=== PATIENT | female | born 1950 | race Caucasian/White ===

== ENCOUNTER → 2017-02-01 | Outpatient (CLI) | payer MEDICARE ==
--- NOTE | 2017-02-05 08:06 | MM ---
Reason for exam: screening (asymptomatic). Last mammogram was performed 1 year ago. History: Patient is postmenopausal. Physical Findings: A clinical breast exam by your physician is recommended on an annual basis and results should be correlated with mammographic findings. MG Screening Mammo w CAD Bilateral CC and MLO view(s) were taken. XCCL view(s) were taken of the left breast. Prior study comparison: January 31, 2016, bilateral MG 3d screening mammo w/cad. January 20, 2015, bilateral MG screening mammo w CAD. November 02, 2013, bilateral digital screening mammo w/CAD. The breast tissue is heterogeneously dense. This may lower the sensitivity of mammography. No significant changes when compared with prior studies. ASSESSMENT: Negative, BI-RAD 1 RECOMMENDATION: Routine screening mammogram of both breasts in 1 year.
== END | disposition home or self-care (01) ==
LOC: RADMAMWWP 07:12
PROVIDERS: ATTEND Internal Medicine
DX: Z12.31 Encounter for screening mammogram for malignant neoplasm of breast (principal)

== ENCOUNTER → 2017-02-28 | Outpatient (CLI) | payer MEDICARE ==
--- NOTE | 2017-02-28 10:04 | XR ---
EXAMINATION TYPE: XR abdomen 1V DATE OF EXAM: 02/28/2017 9:53 AM COMPARISON: 12/29/2015 HISTORY: Pain TECHNIQUE: One view abdominal series FINDINGS: The osseous structures are intact. The bowel gas pattern is nonspecific. Lung bases are clear. 2 mm calculus overlying the upper pole right kidney. Degenerative and hypertrophic change of the spine. IMPRESSION: 1. 2 mm right renal calculus suspected upper pole.
== END | disposition home or self-care (01) ==
LOC: RADXRMAIN 09:34
PROVIDERS: ATTEND Urology
DX: N20.0 Calculus of kidney (principal)
CPT/HCPCS: 74000

== ENCOUNTER → 2017-12-16 | Outpatient (CLI) | payer MEDICARE ==
[2017-12-16 09:39] LABS: ALT 20 U/L (9-52); AST 23 U/L (14-36); Albumin 4.6 g/dL (3.5-5.0); Alkaline Phosphatase 80 U/L (38-126); Anion Gap 11 mmol/L; Blood Urea Nitrogen 19 mg/dL (7-17); Calcium 9.9 mg/dL (8.4-10.2); Carbon Dioxide 32 mmol/L (22-30); Chloride 101 mmol/L (98-107); Cholesterol 215 mg/dL (<200); Glucose 91 mg/dL (74-99); HDL Cholesterol 68 mg/dL (40-60); LDL Cholesterol,Calculated 125 mg/dL (0-99); Potassium 4.7 mmol/L (3.5-5.1); Sodium 144 mmol/L (137-145); Total Bilirubin 0.4 mg/dL (0.2-1.3); Total Protein 7.5 g/dL (6.3-8.2); Triglycerides 112 mg/dL (<150)
[2017-12-16 17:10] LABS: Hemoglobin A1C 5.3 % (4.0-6.0)
== END | disposition home or self-care (01) ==
LOC: LABWHC1 08:43
PROVIDERS: ATTEND Internal Medicine
DX: N20.0 Calculus of kidney (principal); E78.5 Hyperlipidemia, unspecified; R73.9 Hyperglycemia, unspecified
CPT/HCPCS: 36415; 80053; 80061; 83036; 84443

== ENCOUNTER → 2018-03-25 | Outpatient (CLI) | payer MEDICARE ==
--- NOTE | 2018-03-26 09:55 | MM ---
Reason for exam: screening (asymptomatic). Last mammogram was performed 1 year and 2 months ago. History: Patient is postmenopausal. Physical Findings: A clinical breast exam by your physician is recommended on an annual basis and results should be correlated with mammographic findings. MG 3D Screening Mammo W/Cad Bilateral CC and MLO view(s) were taken. Prior study comparison: February 01, 2017, bilateral MG screening mammo w CAD. January 31, 2016, bilateral MG 3d screening mammo w/cad. The breast tissue is heterogeneously dense. This may lower the sensitivity of mammography. Focal asymmetry retroareolar right breast. ASSESSMENT: Incomplete: need additional imaging evaluation, BI-RAD 0 RECOMMENDATION: Special view mammogram of the right breast. If lesion persists on supplemental views, image directed ultrasound is recommended. [facility] will attempt to contact patient to return for supplemental views and ultrasound if indicated.
== END | disposition home or self-care (01) ==
LOC: RADMAMWWP 10:13
PROVIDERS: ATTEND Internal Medicine
DX: Z12.31 Encounter for screening mammogram for malignant neoplasm of breast (principal)
CPT/HCPCS: 77063; 77067

== ENCOUNTER → 2018-04-28 | Outpatient (CLI) | payer MEDICARE ==
--- NOTE | 2018-04-28 10:50 | MM ---
Reason for exam: additional evaluation requested from abnormal screening. Last mammogram was performed 1 month ago. History: Patient is postmenopausal. Physical Findings: Nurse did not find any significant physical abnormalities on exam. MG 3D Work Up W/Cad RT Spot compression CC, spot compression MLO, and LM view(s) were taken of the right breast. Prior study comparison: March 25, 2018, bilateral MG 3d screening mammo w/cad. February 01, 2017, bilateral MG screening mammo w CAD. The breast tissue is heterogeneously dense. This may lower the sensitivity of mammography. No suspicious abnormality. Previously seen focal asymmetry improved on additional views and appears as fibroglandular tissue. These results were verbally communicated with the patient and result sheet given to the patient on 04/28/18. ASSESSMENT: Benign, BI-RAD 2 RECOMMENDATION: Return to routine screening mammogram schedule for both breasts.
== END | disposition home or self-care (01) ==
LOC: RADMAMWWP 09:31
PROVIDERS: ATTEND Internal Medicine
DX: R92.8 Other abnormal and inconclusive findings on diagnostic imaging of breast (principal)
CPT/HCPCS: 77065; G0279; 77061

== ENCOUNTER → 2018-12-18 | Outpatient (CLI) | payer MEDICARE ==
--- NOTE | 2018-12-18 07:59 | BD ---
EXAMINATION TYPE: Axial Bone Density DATE OF EXAM: 12/18/2018 COMPARISON: NONE CLINICAL HISTORY: 68 YR OLD FEMALE....ICD-10 CODE: Z78.0 ASY. MENOPAUSAL STATE Height: 62.4 Weight: 118 FRAX RISK QUESTIONS: Secondary Osteoporosis: YES 3. Menopause before 45: YES RISK FACTORS HISTORY OF: History of Wrist Fracture: RT FOREARM A CHILD Active: YES Diet low in dairy products/other sources of calcium: YES A BIT Postmenopausal woman: AT 39 YRS OLD HORMONES IN THE PAST FOR 3 YRS MEDICATIONS: Additional Medications: BP MEDS, MULTIVITAMIN Additional History: NOTHING ADDITIONAL TO NOTE HERE EXAM MEASUREMENTS: Bone mineral densitometry was performed using the CONWEAVER System. Bone mineral density as measured about the Lumbar spine is: ----- L1-L4(G/cm2): 0.983 T Score Values are as follows: ----- L1: -1.0 ----- L2: -1.4 ----- L3: -2.0 ----- L4: -2.2 ----- L1-L4: -1.6 Bone mineral density FIRST BONE DENSITY AT [facility] Bone mineral density about the R hip (g/cm2): 0.741 Bone mineral density about the L hip (g/cm2): 0.754 T Score values are as follows: -----R Neck: -2.8 -----L Neck: -2.5 -----R Total: -2.1 -----L Total: -2.0 Bone mineral density FIRST BONE DENSITY AT [facility] FRAX%s: THERE IS A 15.3% CHANCE FOR A MAJOR OSTEOPOROTIC FX AND A 4.6% FOR HIP......PROBABILITY OF FX IN 10 YRS TIME IMPRESSION: Osteoporosis (T Score less than -2.5) femoral neck level in the right hip. There is increased fracture risk and therapy is usually indicated based on age. Re-Screen 1-2 years. NOTE: T-SCORE=SD OF THE YOUNG ADULT MEAN.
--- NOTE | 2018-12-18 16:26 | ECHOF ---
Referral Reason:I10 HYPERTENSION MEASUREMENTS -------- HEIGHT: 160.0 cm WEIGHT: 53.5 kg BP: RVIDd: 2.1 cm (< 3.3) IVSd: 0.9 cm (0.6 - 1.1) LVIDd: 3.4 cm (3.9 - 5.3) LVPWd: 0.9 cm (0.6 - 1.1) IVSs: 1.2 cm LVIDs: 1.5 cm LVPWs: 1.2 cm LAESV Index (A-L): 12.96 ml/m Ao Diam: 2.5 cm (2.0 - 3.7) AV Cusp: 1.4 cm (1.5 - 2.6) LA Diam: 2.6 cm (2.7 - 3.8) MV EXCURSION: 12.690 mm (> 18.000) MV EF SLOPE: 84 mm/s (70 - 150) EPSS: 0.8 cm MV E Stephen: 0.99 m/s MV DecT: 173 ms MV A Stephen: 0.71 m/s MV E/A Ratio: 1.40 RAP: 5.00 mmHg RVSP: 34.20 mmHg FINDINGS -------- Sinus rhythm. This was a technically good study. The left ventricular size is normal. Left ventricular wall thickness is normal. Overall left vent ricular systolic function is normal with, an EF between 55 - 60 %. The right ventricle is normal in size and function. Normal LA size by volume 22+/-6 ml/m2. The right atrium is normal in size. The aortic valve is trileaflet, and appears structurally normal. No aortic stenosis or regurgitation. Mild mitral regurgitation is present. Mild tricuspid regurgitation present. The right ventricular systolic pressure, as measured by Doppl er, is 34.20mmHg. Pulmonic valve appears structurally normal. The aortic root size is normal. Normal inferior vena cava with normal inspiratory collapse consistent with estimated right atrial pre ssure of 5 mmHg. The pericardium is normal. CONCLUSIONS -------- 1. Sinus rhythm. 2. This was a technically good study. 3. The left ventricular size is normal. 4. Left ventricular wall thickness is normal. 5. Overall left ventricular systolic function is normal with, an EF between 55 - 60 %. 6. The right ventricle is normal in size and function. 7. Normal LA size by volume 22+/-6 ml/m2. 8. The right atrium is normal in size. 9. The aortic valve is trileaflet, and appears structurally normal. No aortic stenosis or regurgitati on. 10. Mild mitral regurgitation is present. 11. Mild tricuspid regurgitation present. 12. The right ventricular systolic pressure, as measured by Doppler, is 34.20mmHg. 13. Pulmonic valve appears structurally normal. 14. The aortic root size is normal. 15. Normal inferior vena cava with normal inspiratory collapse consistent with estimated right atrial pressure of 5 mmHg. 16. The pericardium is normal. PROPERTY SUPERVISOR: Madyson Rodriguez RDCS
== END ==
LOC: RADBDWWP 07:10
PROVIDERS: ATTEND Family Medicine
DX: Z13.820 Encounter for screening for osteoporosis (principal); M81.0 Age-related osteoporosis without current pathological fracture; I08.1 Rheumatic disorders of both mitral and tricuspid valves; Z78.0 Asymptomatic menopausal state
CPT/HCPCS: 77080; 93306

== ENCOUNTER → 2019-04-29 | Outpatient (CLI) | payer MEDICARE ==
--- NOTE | 2019-04-30 13:05 | MM ---
Reason for exam: screening (asymptomatic). Last mammogram was performed 1 year ago. History: Patient is postmenopausal. Physical Findings: A clinical breast exam by your physician is recommended on an annual basis and results should be correlated with mammographic findings. MG Screening Mammo w CAD Bilateral CC and MLO view(s) were taken. Prior study comparison: April 28, 2018, right breast MG 3d work up w/cad RT. March 25, 2018, bilateral MG 3d screening mammo w/cad. The breast tissue is extremely dense which could obscure a lesion on mammography. Benign appearing bilateral calcifications. No suspicious abnormality. No significant changes when compared with prior studies. ASSESSMENT: Benign, BI-RAD 2 RECOMMENDATION: Routine screening mammogram of both breasts in 1 year.
== END | disposition home or self-care (01) ==
LOC: RADMAMWWP 06:45
PROVIDERS: ATTEND Family Medicine
DX: Z12.31 Encounter for screening mammogram for malignant neoplasm of breast (principal)
CPT/HCPCS: 77067

== ENCOUNTER → 2020-06-24 | Outpatient (CLI) | payer MEDICARE ==
--- NOTE | 2020-06-28 11:23 | MM ---
Reason for exam: screening (asymptomatic). Last mammogram was performed 1 year and 2 months ago. History: Patient is postmenopausal. Physical Findings: A clinical breast exam by your physician is recommended on an annual basis and results should be correlated with mammographic findings. MG 3D Screening Mammo W/Cad Bilateral CC and MLO view(s) were taken. Prior study comparison: April 29, 2019, bilateral MG screening mammo w CAD. April 28, 2018, right breast MG 3d work up w/cad RT. The breast tissue is heterogeneously dense. This may lower the sensitivity of mammography. There are benign appearing round vascular calcifications bilaterally. There is no discrete abnormality. ASSESSMENT: Benign, BI-RAD 2 RECOMMENDATION: Routine screening mammogram of both breasts in 1 year.
== END | disposition home or self-care (01) ==
LOC: RADMAMWWP 16:11
PROVIDERS: ATTEND Family Medicine
DX: Z12.31 Encounter for screening mammogram for malignant neoplasm of breast (principal)
CPT/HCPCS: 77063; 77067

== ENCOUNTER 2021-02-19 08:09 | Emergency (ER) | payer MEDICARE ==
[2021-02-19 08:17] VITALS: TEMP 97.9
[2021-02-19] MEDS ORDERED: ONDANSETRON 4 MG/2 ML VIAL IVP STA (08:38)
[2021-02-19] MEDS ORDERED: KETOROLAC 15 MG/ML 1 ML VIAL IVP STA (08:38)
[2021-02-19] MEDS ORDERED: SODIUM CHLORIDE 0.9% 1,000 ML IV STA (08:38)
--- NOTE | 2021-02-19 09:01 | ED ---
Female Urogenital HPI - General Chief complaint: Urogenital Stated complaint: kidney stones Time Seen by Provider: 02/19/21 08:18 Source: patient Mode of arrival: ambulatory Limitations: no limitations - History of Present Illness Initial comments: Patient is a 70-year-old female presenting to the emergency Department with complaints of some left flank pain that started yesterday. She states she noticed a little bit of discomfort earlier in the day and then has steadily progressed. She describes it as very sharp at times, does make her nauseous and she's had some vomiting episodes because of the pain. There is a little bit of radiation of the pain to the left side of the abdomen. She does have history of kidney stones and this does feel similar. She denies history of fever or chills. She continues to be nauseous, couple vomiting episodes morning. She did not take anything for pain. She has been fully vaccinated against Covid. She denies any hematuria, no dysuria. No anterior abdominal pain history of hysterectomy, no other abdominal surgeries. She denies any chest pain or short of breath. She has no further complaints. - Related Data Home Medications Medication Instructions Recorded Confirmed Atorvastatin [Lipitor] 10 mg PO HS 02/19/21 02/19/21 Olopatadine HCl [Pataday Once 1 drop BOTH EYES DAILY 02/19/21 02/19/21 Daily Relief] Ondansetron HCl [Zofran] 4 mg PO TID PRN 02/19/21 02/19/21 Propylene Glycol/Peg 400/Pf 1 drop BOTH EYES BID PRN 02/19/21 02/19/21 [Systane 0.3-0.4% Eye Drops] amLODIPine [Norvasc] 5 mg PO BID 02/19/21 02/19/21 Allergies Allergy/AdvReac Type Severity Reaction Status Date / Time Penicillins Allergy Dyspnea Verified 02/19/21 09:15 Review of Systems ROS Statement: Those systems with pertinent positive or pertinent negative responses have been documented in the HPI. ROS Other: All systems not noted in ROS Statement are negative. Past Medical History Additional Past Medical History / Comment(s): RT KIDNEY STONES. History of Any Multi-Drug Resistant Organisms: None Reported Past Surgical History: Appendectomy, Hysterectomy, Tonsillectomy Additional Past Surgical History / Comment(s): RIGHT PERCUTANEOUS NEPHROLITHOTOM Y Past Anesthesia/Blood Transfusion Reactions: No Reported Reaction Past Psychological History: No Psychological Hx Reported Smoking Status: Never smoker Past Alcohol Use History: None Reported Past Drug Use History: None Reported - Past Family History Mother Family Medical History: Deep Vein Thrombosis (DVT) Sister(s) Family Medical History: Cancer General Exam - General Exam Comments Initial Comments: GENERAL: Patient is well-developed and well-nourished. Patient is nontoxic and in Mild distress. HEAD: Atraumatic, normocephalic. EYES: Pupils equal round and reactive to light, extraocular movements intact, sclera anicteric, conjunctiva are normal. Eyelids were unremarkable. ENT: TMs normal, nares patent, oropharynx clear without exudates. Moist mucous membranes. NECK: Normal range of motion, supple without lymphadenopathy or JVD. LUNGS: Unlabored respirations. Breath sounds clear to auscultation bilaterally and equal. No wheezes rales or rhonchi. HEART: Regular rate and rhythm without murmurs, rubs or gallops. ABDOMEN: Soft, nontender, normoactive bowel sounds. No guarding, no rebound. No masses appreciated. Left flank pain on palpation. : Deferred MUSCULOSKELETAL: Normal extremities with adequate strength and normal range of motion, no pitting or edema. No clubbing or cyanosis. NEUROLOGICAL: Patient is alert and oriented x 3. Motor and sensory are also intact. Cranial nerves II through XII grossly intact. Symmetrical smile. Normal speech, normal gait. PSYCH: Normal mood, normal affect. SKIN: Warm, Dry, normal turgor, no rashes or lesions noted. Limitations: no limitations Course Vital Signs 02/19/21 02/19/21 08:12 09:43 Temperature 97.9 F Pulse Rate 109 H Respiratory 18 16 Rate Blood Pressure 130/75 145/70 O2 Sat by Pulse 98 97 Oximetry Medical Decision Making - Medical Decision Making Patient is a 70-year-old female here for left low back, flank pain for the last 2 days. She does have history of kidney stones and was fearful that this is another one. Her vital signs are stable, no fevers. Her labs are good, no white count, kidney function is stable. Urine shows no evidence of infection, no hematuria. Computed tomography scan shows no evidence of kidney stones, no acute process. Patient is given some fluids and Toradol as well as some Zofran, reports improvement in her symptoms. She states she is able to move around better without discomfort. I discussed these findings with the patient. This is most likely a muscle skeletal injury. I recommended continue anti- inflammatories at home such as ibuprofen. I will also send her home with a few tablets of Zofran for any additional nausea. She'll follow up with her PCP. Patient is stable for discharge. Patient is in agreement with this plan of care. Return parameters were discussed with the patient and they verbalized understanding. Case discussed with Dr. Herrera. - Lab Data Result diagrams: 02/19/21 09:01 02/19/21 09:01 Lab Results 02/19/21 02/19/21 02/19/21 Range/Units 09:01 09:01 09:01 WBC 5.5 (3.8-10.6) k/uL RBC 5.33 (3.80-5.40) m/uL Hgb 15.2 (11.4-16.0) gm/dL Hct 46.5 H (34.0-46.0) % MCV 87.2 (80.0-100.0) fL MCH 28.5 (25.0-35.0) pg MCHC 32.7 (31.0-37.0) g/dL RDW 13.4 (11.5-15.5) % Plt Count 233 (150-450) k/uL MPV 7.0 Neutrophils % 82 % Lymphocytes % 9 % Monocytes % 6 % Eosinophils % 0 % Basophils % 1 % Neutrophils # 4.5 (1.3-7.7) k/uL Lymphocytes # 0.5 L (1.0-4.8) k/uL Monocytes # 0.3 (0-1.0) k/uL Eosinophils # 0.0 (0-0.7) k/uL Basophils # 0.0 (0-0.2) k/uL Sodium 139 (137-145) mmol/L Potassium 4.2 (3.5-5.1) mmol/L Chloride 101 (98-107) mmol/L Carbon Dioxide 28 (22-30) mmol/L Anion Gap 10 mmol/L BUN 13 (7-17) mg/dL Creatinine 0.59 (0.52-1.04) mg/dL Est GFR (CKD-EPI)AfAm >90 (>60 ml/min/1.73 sqM) Est GFR (CKD-EPI)NonAf >90 (>60 ml/min/1.73 sqM) Glucose 118 H (74-99) mg/dL Plasma Lactic Acid Cm 1.0 (0.7-2.0) mmol/L Calcium 10.0 (8.4-10.2) mg/dL Total Bilirubin 0.5 (0.2-1.3) mg/dL AST 33 (14-36) U/L ALT 19 (4-34) U/L Alkaline Phosphatase 100 (38-126) U/L Total Protein 7.8 (6.3-8.2) g/dL Albumin 4.8 (3.5-5.0) g/dL Urine Color Urine Appearance (Clear) Urine pH (5.0-8.0) Ur Specific [place] (1.001-1.035) Urine Protein (Negative) Urine Glucose (UA) (Negative) Urine Ketones (Negative) Urine Blood (Negative) Urine Nitrite (Negative) Urine Bilirubin (Negative) Urine Urobilinogen (<2.0) mg/dL Ur Leukocyte Esterase (Negative) Urine RBC (0-5) /hpf Urine WBC (0-5) /hpf Ur Squamous Epith Cells (0-4) /hpf Urine Bacteria (None) /hpf Urine Mucus (None) /hpf 02/19/21 Range/Units 10:23 WBC (3.8-10.6) k/uL RBC (3.80-5.40) m/uL Hgb (11.4-16.0) gm/dL Hct (34.0-46.0) % MCV (80.0-100.0) fL MCH (25.0-35.0) pg MCHC (31.0-37.0) g/dL RDW (11.5-15.5) % Plt Count (150-450) k/uL MPV Neutrophils % % Lymphocytes % % Monocytes % % Eosinophils % % Basophils % % Neutrophils # (1.3-7.7) k/uL Lymphocytes # (1.0-4.8) k/uL Monocytes # (0-1.0) k/uL Eosinophils # (0-0.7) k/uL Basophils # (0-0.2) k/uL Sodium (137-145) mmol/L Potassium (3.5-5.1) mmol/L Chloride (98-107) mmol/L Carbon Dioxide (22-30) mmol/L Anion Gap mmol/L BUN (7-17) mg/dL Creatinine (0.52-1.04) mg/dL Est GFR (CKD-EPI)AfAm (>60 ml/min/1.73 sqM) Est GFR (CKD-EPI)NonAf (>60 ml/min/1.73 sqM) Glucose (74-99) mg/dL Plasma Lactic Acid Cm (0.7-2.0) mmol/L Calcium (8.4-10.2) mg/dL Total Bilirubin (0.2-1.3) mg/dL AST (14-36) U/L ALT (4-34) U/L Alkaline Phosphatase (38-126) U/L Total Protein (6.3-8.2) g/dL Albumin (3.5-5.0) g/dL Urine Color Colorless Urine Appearance Clear (Clear) Urine pH 7.0 (5.0-8.0) Ur Specific [place] 1.005 (1.001-1.035) Urine Protein Negative (Negative) Urine Glucose (UA) Negative (Negative) Urine Ketones 1+ H (Negative) Urine Blood Negative (Negative) Urine Nitrite Negative (Negative) Urine Bilirubin Negative (Negative) Urine Urobilinogen <2.0 (<2.0) mg/dL Ur Leukocyte Esterase Large H (Negative) Urine RBC 1 (0-5) /hpf Urine WBC 3 (0-5) /hpf Ur Squamous Epith Cells 1 (0-4) /hpf Urine Bacteria Rare H (None) /hpf Urine Mucus Rare H (None) /hpf Disposition Clinical Impression: Low back strain, Nausea & vomiting Disposition: HOME SELF-CARE Condition: Stable Instructions (If sedation given, give patient instructions): Muscle Strain (ED) Additional Instructions: Please return to the Emergency Department if symptoms worsen or any other concerns. I recommend taking anti-inflammatory such as ibuprofen or Aleve for the back pain. May also try heat to the area. Follow-up with your regular doctor Is patient prescribed a controlled substance at d/c from ED?: No Referrals: Tatum Brink MD [Primary Care Provider] - 1-2 days Time of Disposition: 10:48
[2021-02-19 09:10] LABS: HGB 15.2 gm/dL (11.4-16.0); RBC 5.33 m/uL (3.80-5.40); WBC 5.5 k/uL (3.8-10.6)
[2021-02-19 09:11] LABS: Basophils % (A) 1 %; Eosinophils % (A) 0 %; HCT 46.5 % (34.0-46.0); Lymphocytes # (A) 0.5 k/uL (1.0-4.8); Lymphocytes % (A) 9 %; MCH 28.5 pg (25.0-35.0); MCHC 32.7 g/dL (31.0-37.0); MCV 87.2 fL (80.0-100.0); Monocytes # (A) 0.3 k/uL (0-1.0); Monocytes % (A) 6 %; Neutrophils # (A) 4.5 k/uL (1.3-7.7); Neutrophils % (A) 82 %; Platelet Count 233 k/uL (150-450); RDW 13.4 % (11.5-15.5)
[2021-02-19 09:20] LABS: ALT 19 U/L (4-34); AST 33 U/L (14-36); African American GFR (CKD) >90 (>60 ml/min/1.73 sqM); Albumin 4.8 g/dL (3.5-5.0); Alkaline Phosphatase 100 U/L (38-126); Anion Gap 10 mmol/L; Blood Urea Nitrogen 13 mg/dL (7-17); Carbon Dioxide 28 mmol/L (22-30); Chloride 101 mmol/L (98-107); Glucose 118 mg/dL (74-99); Non-African American GFR(CKD) >90 (>60 ml/min/1.73 sqM); Potassium 4.2 mmol/L (3.5-5.1); Sodium 139 mmol/L (137-145); Total Bilirubin 0.5 mg/dL (0.2-1.3); Total Protein 7.8 g/dL (6.3-8.2)
--- NOTE | 2021-02-19 10:07 | CT ---
EXAMINATION TYPE: CT abdomen pelvis wo con DATE OF EXAM: 02/19/2021 COMPARISON: 02/10/2015 HISTORY: Lt Flank pain CT DLP: 299.1 mGycm Automated exposure control for dose reduction was used. TECHNIQUE: Helical acquisition of images was performed from the lung bases through the pelvis. FINDINGS: LUNG BASES: No significant abnormality is appreciated. LIVER/GB: No significant abnormality is appreciated. PANCREAS: No significant abnormality is seen. SPLEEN: No significant abnormality is seen. ADRENALS: No significant abnormality is seen. KIDNEYS: No significant abnormality is seen. ADENOPATHY: None visualized. OSSEOUS STRUCTURES: Degenerative disc disease L4-L5 BOWEL: Diverticulosis of the colon. Appendix not seen. No inflammatory changes in the right lower qu adrant. Bowel gas pattern nonspecific with no obstruction. OTHER: Aorta of normal caliber. Atherosclerotic change noted. IMPRESSION: DIVERTICULOSIS WITH NO CT EVIDENCE OF DIVERTICULITIS.
[2021-02-19 10:37] LABS: Appearance,Urine Clear (Clear); Bacteria,Urine Rare /hpf; Bilirubin,Urine Negative (Negative); Blood,Urine Negative (Negative); Color,Urine Colorless; Glucose,Urine (UA) Negative (Negative); Ketones,Urine 1+ (Negative); Leukocyte Esterase,Urine Large (Negative); Mucus,Urine Rare /hpf; Nitrite,Urine Negative (Negative); Protein,Urine Negative (Negative); RBC,Urine 1 /hpf (0-5); Specific Gravity,Urine 1.005 (1.001-1.035); Squamous Epithelial Cell,Urine 1 /hpf (0-4); Urobilinogen,Urine <2.0 mg/dL (<2.0); WBC,Urine 3 /hpf (0-5)
[2021-02-19] MEDS ORDERED: ONDANSETRON 4 MG ODT STARTER PACK 2 TAB BTL PO STA (10:45)
[2021-02-19 11:06] VITALS: BP 132/59; PULSE 78; RESP 18
== END 2021-02-19 11:08 | disposition home or self-care (01) ==
LOC: EC 08:09
DX: S39.012A Strain of muscle, fascia and tendon of lower back, initial encounter (principal); R11.2 Nausea with vomiting, unspecified; X58.XXXA Exposure to other specified factors, initial encounter; Z87.442 Personal history of urinary calculi; Z90.49 Acquired absence of other specified parts of digestive tract; Z90.710 Acquired absence of both cervix and uterus; Z90.09 Acquired absence of other part of head and neck
CPT/HCPCS: 36415; 80053; 83605; 85025; 81001; 74176; 99284; 96374; 96375; 96361; J2405; J1885; S0119

== ENCOUNTER → 2021-04-19 | Outpatient (CLI) | payer MEDICARE ==
--- NOTE | 2021-04-19 11:58 | US ---
EXAMINATION TYPE: US carotid duplex BILAT DATE OF EXAM: 04/19/2021 COMPARISON: NONE CLINICAL HISTORY: R09.89 Other specified symptoms and signs involving. EXAM MEASUREMENTS: RIGHT: Peak Systolic Velocity (PSV) cm/sec ----- Right CCA: 105.5 ----- Right ICA: 111.5 ----- Right ECA: 141.3 ICA/CCA ratio: 1.1 RIGHT: End Diastole cm/sec ----- Right CCA: 22.7 ----- Right ICA: 31.5 ----- Right ECA: 12.3 LEFT: Peak Systolic Velocity (PSV) cm/sec ----- Left CCA: 30.5 ----- Left ICA: 401.0 ----- Left ECA: 30.8 ICA/CCA ratio: 13.2 LEFT: End Diastole cm/sec ----- Left CCA: 10.6 ----- Left ICA: 73.4 ----- Left ECA: 0.0 VERTEBRALS (direction of flow): Right Vertebral: Antegrade Left Vertebral: Antegrade Rhythm: Normal Right: moderate atherosclerotic plaque without significant velocity increases Left: Severe atherosclerotic plaque, with significant velocity increases suspicious for greater than 70% stenosis. IMPRESSION: 1. Right: No evidence of hemodynamically significant stenosis of the right internal carotid artery. T here is moderate atherosclerotic plaque at the right common carotid artery bifurcation. 2. Left: The peak systolic velocity left internal carotid artery measures 401. There is severe greate r than 70% stenosis to near occlusion of the left internal carotid artery. Severe atherosclerotic moni que of the left common carotid artery bifurcation and internal carotid artery.. Vascular surgery cons ultation is recommended. Criteria for Assigning % of Stenosis / Diameter reduction (Estimation based on the indirect measurements of the internal carotid artery velocities (ICA PSV). 1. Normal (no stenosis)=ICA PSV < 125 cm/s: ratio < 2.0: ICA EDV<40 cm/s. 2. Less than 50% stenosis=ICA PSV < 125 cm/s: ratio < 2.0: ICA EDV<40 cm/s. 3. 50 to 69% stenosis=ICA PSV of 125 to 230 cm/s: ration 2.0 ? 4.0: ICA EDV 40-100 cm/s. 4. Greater than 70% stenosis to near occlusion= ICA PSV > 230 cm/s: ratio > 4.0: ICA EDV > 100 cm/s. 5. Near occlusion= ICA PSV velocities may be low or undetectable: variable ratio and ICA EDV. 6. Total occlusion=unable to detect flow.
== END | disposition home or self-care (01) ==
LOC: RADUSWWP 11:00
PROVIDERS: ATTEND Family Medicine
DX: I65.22 Occlusion and stenosis of left carotid artery (principal)
CPT/HCPCS: 93880

== ENCOUNTER → 2021-05-23 | Outpatient (CLI) | payer MEDICARE ==
[2021-05-23 15:30] LABS: African American GFR (CKD) >90 (>60 ml/min/1.73 sqM); Blood Urea Nitrogen 25 mg/dL (7-17); Non-African American GFR(CKD) 89 (>60 ml/min/1.73 sqM)
--- NOTE | 2021-05-24 08:37 | CT ---
EXAMINATION TYPE: CT angio neck DATE OF EXAM: 05/23/2021 COMPARISON: Carotid ultrasound 04/19/2021 HISTORY: 70-year-old female I65.29, unspecified occlusion TECHNIQUE: Contiguous axial scanning of the neck performed without and with IV Contrast, patient inje cted with 65 mL of Isovue 370. Coronal/sagittal MIP reconstructions performed. 3-D reconstructions ge nerated on a dedicated independent workstation. CT DLP: 472.4 mGycm Automated exposure control for dose reduction was used. FINDINGS: Mild atherosclerotic arch calcifications. There is a dominant right vertebral artery. The left verteb ral artery shows its takeoff very close to the origin of the left subclavian artery. Because further diminutive/hypoplastic along the V4 segment. Large bilateral posterior communicating arteries are not ed, right greater than left within the intracranial space. The right common carotid artery is patent. There is mild atherosclerotic plaque and calcification at the right carotid bifurcation with mild, less than 25% narrowing. No significant stenosis of the righ t internal carotid artery. Moderate to severe atherosclerotic plaque and calcification at the left carotid bifurcation extending into the proximal left ICA resulting in a severe 70% stenosis by NASCET criteria. Additional severe focal atherosclerotic stenosis at the origin of the left external carotid artery. 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 Nodularity of the thyroid gland raul suring up to 7 mm, possible goiter. IMPRESSION: 1. EXTENSIVE ATHEROSCLEROTIC PLAQUE AND CALCIFICATION OF THE LEFT CAROTID BIFURCATION RESULTING IN A SEVERE, 70% PROXIMAL LEFT ICA STENOSIS. SEVERE FOCAL STENOSIS AT THE ORIGIN OF THE LEFT EXTERNAL BENDER TID ARTERY WELL. 2. MILD, LESS THAN 25% STENOSIS PROXIMAL RIGHT ICA. 3. DOMINANT RIGHT VERTEBRAL ARTERY. THE DIMINUTIVE LEFT VERTEBRAL ARTERY HAS ITS ORIGIN VERY CLOSE TO THE TAKEOFF OF THE LEFT SUBCLAVIAN ARTERY AND BECOMES FURTHER HYPOPLASTIC AT THE V4 SEGMENT.
== END | disposition home or self-care (01) ==
LOC: RADCTMAIN 14:38
PROVIDERS: ATTEND Internal Medicine Interventional Cardiology
DX: I65.22 Occlusion and stenosis of left carotid artery (principal)
CPT/HCPCS: 82565; 84520; 70498; 36415; Q9967

== ENCOUNTER → 2021-09-06 | Outpatient (CLI) | payer MEDICARE ==
[2021-09-06 17:59] LABS: Chol/HDL Ratio 1.89 Ratio; VLDL Calculation 10.08 mg/dL (5.00-40.00)
== END | disposition home or self-care (01) ==
LOC: LABWHC1 10:04
PROVIDERS: ATTEND Nurse Practitioner Adult Health
DX: E78.5 Hyperlipidemia, unspecified (principal)
CPT/HCPCS: 36415; 80061

== ENCOUNTER 2021-11-17 20:01 | Emergency (ER) | payer MEDICARE ==
[2021-11-17 20:09] VITALS: BP 126/64; PULSE 108; RESP 20; TEMP 98.9
[2021-11-17] MEDS ORDERED: FLUORESCEIN STRIPS 1 MG STRIP LEFT EYE ONE (20:43)
[2021-11-17] MEDS ORDERED: PROPARACAINE 0.5% OPHTH DROPS 15 ML BTL BOTH EYES STA (20:44)
[2021-11-17] MEDS ORDERED: valACYclovir HCL 1,000 MG TABLET PO STA (20:45)
[2021-11-17] MEDS ORDERED: HYDROcodone/APAP 5-325MG 1 EACH TAB PO STA (20:45)
--- NOTE | 2021-11-17 21:34 | ED ---
Skin/Abscess/FB HPI - General Chief complaint: Skin/Abscess/Foreign Body Stated complaint: shingles Time Seen by Provider: 11/17/21 20:10 Source: patient, RN notes reviewed Mode of arrival: ambulatory Limitations: no limitations - History of Present Illness Initial comments: This is a pleasant 71-year-old female who presents with a rash to the left facial area, left forehead, and around her left eye which started about 48 hours ago. Patient states she is getting burning and tingling to the area. No loss of visual acuity. No significant eye discharge. Patient denies skin rash elsewhere. No history of immunosuppression. No headache, no fever or chills, no changes in vision or hearing, no sore throat or difficulty with speech, no neck pain, no chest pain or shortness of breath, no abdominal pain, no nausea or vomiting, no changes in urination or bowel movements, no numbness or tingling, no extremity pain, no skin rashes or lesions. MD complaint: rash - Related Data Home Medications Medication Instructions Recorded Confirmed amLODIPine [Norvasc] 5 mg PO BID 02/19/21 11/17/21 Aspirin EC [Ecotrin Low Dose] 81 mg PO HS 11/17/21 11/17/21 Rosuvastatin Calcium [Crestor] 40 mg PO W/SUPPER 11/17/21 11/17/21 Previous Rx's Medication Instructions Recorded Artificial Tears Ointment 1 gm OPHTHALMIC QID #3.5 gm 11/17/21 [Lubrifresh Pm Ointment] Docusate [Colace] 100 mg PO DAILY #30 capsule 11/17/21 HYDROcodone/APAP 5-325MG [Atwood 1 each PO Q6H PRN #12 tab 11/17/21 5-325] valACYclovir HCL [Valtrex] 1,000 mg PO Q8HR #21 tab 11/17/21 Allergies Allergy/AdvReac Type Severity Reaction Status Date / Time Penicillins Allergy Dyspnea Verified 11/17/21 20:56 Review of Systems ROS Statement: Those systems with pertinent positive or pertinent negative responses have been documented in the HPI. ROS Other: All systems not noted in ROS Statement are negative. Past Medical History Past Medical History: Hyperlipidemia, Hypertension Additional Past Medical History / Comment(s): RT KIDNEY STONES. History of Any Multi-Drug Resistant Organisms: None Reported Past Surgical History: Appendectomy, Hysterectomy, Tonsillectomy Additional Past Surgical History / Comment(s): RIGHT PERCUTANEOUS NEPHROLITHOTOMY Past Anesthesia/Blood Transfusion Reactions: No Reported Reaction Past Psychological History: No Psychological Hx Reported Smoking Status: Never smoker Past Alcohol Use History: None Reported Past Drug Use History: None Reported - Past Family History Mother Family Medical History: Deep Vein Thrombosis (DVT) Sister(s) Family Medical History: Cancer General Exam - General Exam Comments Initial Comments: Patient no significant distress. Does not appear to be ill or toxic. Limitations: no limitations General appearance: alert, in no apparent distress Head exam: Present: atraumatic, normocephalic, normal inspection Eye exam: Present: normal appearance, PERRL, EOMI, other (Eye was stained, there was no significant uptake over the cornea. Anterior chamber clear on slit-lamp examination. No foreign body). Absent: scleral icterus, conjunctival injection, periorbital swelling ENT exam: Present: normal exam, mucous membranes moist Neck exam: Present: normal inspection. Absent: tenderness, meningismus, lymphadenopathy Respiratory exam: Present: normal lung sounds bilaterally. Absent: respiratory distress, wheezes, rales, rhonchi, stridor Cardiovascular Exam: Present: regular rate, normal rhythm, normal heart sounds. Absent: systolic murmur, diastolic murmur, rubs, gallop, clicks GI/Abdominal exam: Present: soft, normal bowel sounds. Absent: distended, tenderness, guarding, rebound, rigid Extremities exam: Present: normal inspection, full ROM, normal capillary refill. Absent: tenderness, pedal edema, joint swelling, calf tenderness Back exam: Present: normal inspection Neurological exam: Present: alert, oriented X3, CN II-XII intact Psychiatric exam: Present: normal affect, normal mood Skin exam: Present: warm, dry, intact, rash, vesicles, other (Patient has lesions about the left eye. Minimal conjunctival injection noted. Lesions extend onto the left forehead. Did not cross midline. Consistent with herpes zoster). Absent: normal color Course Vital Signs 11/17/21 20:07 Temperature 98.9 F Pulse Rate 108 H Respiratory 20 Rate Blood Pressure 126/64 O2 Sat by Pulse 97 Oximetry Medical Decision Making - Medical Decision Making Patient presents symptomology cancer with herpes zoster ophthalmicus involving the left eye. Discussed the case in detail with the on-call district administrative assistant. Patient can be seen on Saturday. He wanted her to continue the valacyclovir. Mark Anthony brunner is given a short course of Atwood. He did state that the patient is not improved by tomorrow she should return to the ER tomorrow for reevaluation. He also suggested artificial tears. Patient vision acuity was normal. She had no diminishment as assessed by me. Treatment plan discussed with the patient. She voices understanding. The case was discussed in detail with ED attending physician. Presentation, findings, treatment plan discussed in detail. Patient was told to return to the ER for any signs or symptoms worsen. Told to return immediately if any other problems arise. All questions answered. Treatment plan discussed. Patient in agreement Disposition Clinical Impression: Herpes zoster ophthalmicus of left eye Disposition: HOME SELF-CARE Condition: Good Instructions (If sedation given, give patient instructions): Shingles (ED) Additional Instructions: Taking antiviral medicine as directed. Take a stool softener while you're on the pain medication. Follow-up with ophthalmology on Saturday as directed. Follow-up with your regular physician as directed. Return to the ER immediately if any symptoms worsen, new symptoms arise, or any other problems develop. I spoke to the district administrative assistant here. Use artificial tears 4 times a day to the affected eye. Take the occasions as directed. They can see you in the office on Saturday. Call Saturday for an appointment on Saturday. Make sure you tell the military police officer that I spoke to Dr. Orellana. If her eye is not improved by tomorrow afternoon return here to the ER for reevaluation. Prescriptions: Docusate [Colace] 100 mg PO DAILY #30 capsule Artificial Tears Ointment [Lubrifresh Pm Ointment] 1 gm OPHTHALMIC QID #3.5 gm HYDROcodone/APAP 5-325MG [Atwood 5-325] 1 each PO Q6H PRN #12 tab PRN Reason: Pain valACYclovir HCL [Valtrex] 1,000 mg PO Q8HR #21 tab Is patient prescribed a controlled substance at d/c from ED?: No Referrals: Garrett Morillo MD [STAFF PHYSICIAN] - 11/21/21 Time of Disposition: 21:31
== END 2021-11-17 22:43 | disposition home or self-care (01) ==
LOC: EC 20:01
DX: B02.30 Zoster ocular disease, unspecified (principal); E78.5 Hyperlipidemia, unspecified; I10 Essential (primary) hypertension; Z79.82 Long term (current) use of aspirin; Z88.0 Allergy status to penicillin; Z87.442 Personal history of urinary calculi; Z90.49 Acquired absence of other specified parts of digestive tract; Z90.710 Acquired absence of both cervix and uterus
CPT/HCPCS: 99282

== ENCOUNTER → 2021-12-27 | Outpatient (CLI) | payer MEDICARE ==
--- NOTE | 2021-12-27 11:07 | BD ---
EXAMINATION TYPE: Axial Bone Density DATE OF EXAM: 12/27/2021 COMPARISON: NONE CLINICAL HISTORY: Height: 5 FT 3 1/2 IN Weight: 118 FRAX RISK QUESTIONS: Alcohol (3 or more units per day): NO Family History (Parent hip fracture): NO Glucocorticoids (More than 3mos): NO (Ex: prednisone, prednisolone, methylprednisolone, dexamethasone, and hydrocortisone). History of Fracture in Adulthood: NO Secondary Osteoporosis: 1. Type 1 Diabetes: NO 2. Hyperthyroidism: NO 3. Menopause before 45: YES 4. Malnutrition: NO 5. Chronic liver disease: NO Rheumatoid Arthritis: NO Current Tobacco Use: NO RISK FACTORS HISTORY OF: Surgery to Spine/Hip(right/left)/Wrist (right/left): NO Family History of Osteoporosis: NO Active: YES Diet low in dairy products/other sources of calcium: NO Postmenopausal woman: YES Take estrogen and/or progesterone medications: TOOK HRT AFTER HYST APPROX 5-6 YEARS Lost more than 2 inches in height since high school: NO Frequent falls: NO Poor Health: GOOD Hyperparathyroidism: NO Adrenal Insufficiency: NO MEDICATIONS: Additional Medications: ROSUVASTATAN, AMLODIPINE, EYE DROPS FOR SHINGLES Additional History: EXAM MEASUREMENTS: Bone mineral densitometry was performed using the [employer] System. Bone mineral density as measured about the Lumbar spine is: ----- L1-L4(G/cm2): 0.941 T Score Values are as follows: ----- L2: -2.0 ----- L3: -2.1 ----- L4: -2.3 ----- L1-L4: -2.0 Bone mineral density has: DECREASED -3.5 % since study of: 2018 Bone mineral density about the R hip (g/cm2): 0.593 Bone mineral density about the L hip (g/cm2): 0.649 T Score values are as follows: -----R Neck: -3.2 -----L Neck: -2.8 -----R Total: -2.6 -----L Total: -2.4 Bone mineral density has: DECREASED -7.8 % since study of: 2019 IMPRESSION: Osteoporosis of the right proximal femur and osteopenia of the lumbar spine and proximal left femur. NOTE: T-SCORE=SD OF THE YOUNG ADULT MEAN.
--- NOTE | 2021-12-27 13:55 | MM ---
Reason for exam: screening (asymptomatic). Last mammogram was performed 1 year and 6 months ago. History: Patient is postmenopausal. Physical Findings: A clinical breast exam by your physician is recommended on an annual basis and results should be correlated with mammographic findings. MG Screening Mammo w CAD Bilateral CC, MLO, and XCCL view(s) were taken. Prior study comparison: June 24, 2020, bilateral MG 3d screening mammo w/cad. April 29, 2019, bilateral MG screening mammo w CAD. The breast tissue is heterogeneously dense. This may lower the sensitivity of mammography. There is no discrete abnormality. No significant changes when compared with prior studies. ASSESSMENT: Negative, BI-RAD 1 RECOMMENDATION: Routine screening mammogram of both breasts in 1 year.
== END | disposition home or self-care (01) ==
LOC: RADMAMWWP 07:21
PROVIDERS: ATTEND Nurse Practitioner Adult Health
DX: Z12.31 Encounter for screening mammogram for malignant neoplasm of breast (principal); M81.0 Age-related osteoporosis without current pathological fracture; Z78.0 Asymptomatic menopausal state
CPT/HCPCS: 77067; 77080

== ENCOUNTER → 2023-08-07 | Outpatient (CLI) | payer MEDICARE ==
[2023-08-07 10:27] LABS: African American GFR (CKD) >90 (>60 ml/min/1.73 sqM); Blood Urea Nitrogen 18 mg/dL (7-17); Non-African American GFR(CKD) >90 (>60 ml/min/1.73 sqM)
--- NOTE | 2023-08-07 13:40 | CT ---
EXAMINATION TYPE: CT angio neck DATE OF EXAM: 08/07/2023 COMPARISON: 05/23/2021 HISTORY: 73-year-old female carotid bruit, R09.89 OTH SYMPTOMS AND SIGNS INVOLVING THE CIRC A TECHNIQUE: Contiguous axial scanning of the neck performed with IV Contrast, patient injected with 65mL mL of Isovue 370. Coronal/sagittal MIP reconstructions performed. 3-D reconstructions generated on a dedicated independent workstation. CT DLP: 167.00 mGycm Automated exposure control for dose reduction was used. FINDINGS: Biapical pleural-parenchymal scarring. Mild atherosclerotic change at the aortic arch. There is aberrant direct takeoff of the left vertebra l artery either very low from the left subclavian artery origin directly from the aortic arch. The ri ght vertebral artery is dominant. Both vertebral arteries are otherwise patent throughout the course. The V4 segment left vertebral artery becomes even more hypoplastic. There are prominent contribution s from the bilateral posterior cerebral arteries. Mild atherosclerotic calcifications within the carotid siphons. Scattered small hypodense nodules within the thyroid gland measuring up to 7 mm. Some soft tissue partially effacing the right vallecular space, likely lingual tonsillar hypertrophy, unchanged from 2020. The right common carotid artery is patent. Mild to moderate atherosclerotic calcifications in the right carotid bulb with mild, 20% proximal ICA narrowing by NASCET criteria. The left common carotid artery is patent. More moderate to severe atherosclerotic change at the left carotid bifurcation with severe, 70% proxi mal left ICA stenosis by NASCET criteria. Very severe stenosis proximal left ECA. IMPRESSION: 1. PROMINENT ATHEROSCLEROTIC CHANGE REDEMONSTRATED LEFT CAROTID BIFURCATION WITH SIMILAR, SEVERE, 70% PROXIMAL LEFT ICA STENOSIS. VERY SEVERE STENOSIS PROXIMAL LEFT ECA ALSO UNCHANGED. 2. MILD, UNDER 20% PROXIMAL RIGHT ICA STENOSIS, PROGRESSED FROM 2020. 3. DOMINANT RIGHT VERTEBRAL ARTERY. 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
== END | disposition home or self-care (01) ==
LOC: RADCTMAIN 09:36
PROVIDERS: ATTEND Internal Medicine Interventional Cardiology
DX: I70.203 Unspecified atherosclerosis of native arteries of extremities, bilateral legs (principal); R09.89 Other specified symptoms and signs involving the circulatory and respiratory systems
CPT/HCPCS: 82565; 84520; 70498; 36415; Q9967

== ENCOUNTER → 2023-11-11 | Outpatient (CLI) | payer MEDICARE ==
--- NOTE | 2023-11-11 17:54 | US ---
EXAMINATION TYPE: US bladder DATE OF EXAM: 11/11/2023 COMPARISON: NONE CLINICAL INDICATION: Female, 73 years old with history of R33.9 RETENTION OF URINE, UNSPECIFIED; TECHNIQUE: Multiple sonographic images of the bladder are obtained. FINDINGS: No gross abnormality of the partially distended bladder. Post Void Residual Volume: 6.7 mL Color Doppler performed to assess ureteral jets. Bilateral Jets seen: right jet not seen, left jet seen Normal Post Void Residual (less than 50ml): yes IMPRESSION: Small amount of post void residual bladder volume of 7 mL falls within acceptable limits. No sonograp hic evidence for urinary retention.
== END | disposition home or self-care (01) ==
LOC: RADUSWWP 13:25
PROVIDERS: ATTEND Family Medicine
DX: R33.9 Retention of urine, unspecified (principal)
CPT/HCPCS: 76857

== ENCOUNTER → 2024-01-23 | Outpatient (CLI) | payer MEDICARE ==
--- NOTE | 2024-01-23 13:20 | MM ---
Reason for Exam: Screening (asymptomatic). Last mammogram was performed 2 year(s) and 1 month(s) ago. Patient History: Menarche at age 11. First Full-Term at age 22. Left ovary removed at age 39. Right ovary removed at age 39. Hysterectomy at age 39. Postmenopausal. Estrogen for 1 year from age 39 until age 40. Risk Values: Meliza 5 year model risk: 1.6%. NCI Lifetime model risk: 3.7%. Prior Study Comparison: 04/29/2019 Bilateral Screening Mammogram, [facility]. 06/24/2020 Bilateral Screening Mammogram, [facility]. 12/27/2021 Bilateral Screening Mammogram, [facility]. Tissue Density: The breasts are heterogeneously dense, which may obscure small masses. Findings: Analyzed By CAD. There is no suspicious group of microcalcifications or new suspicious mass in either breast. Overall Assessment: Benign, BI-RAD 2 Management: Screening Mammogram of both breasts in 1 year. . Patient should continue monthly self-breast exams. A clinical breast exam by your physician is recommended on an annual basis. This exam should not preclude additional follow-up of suspicious palpable abnormalities. Note on Meliza scores and lifetime risk: 1. A Meliza score greater than 3% is considered moderate risk. If this is the case, consider specialist referral to assess eligibility for a risk reducing agent. 2. If overall lifetime risk for the development of breast cancer is 20% or higher, the patient may qualify for future screening with alternating mammogram and breast MRI. Electronically signed and approved by: Aquiles Landa M.D. Radiologis
== END | disposition home or self-care (01) ==
LOC: RADMAMWWP 08:00
PROVIDERS: ATTEND Family Medicine
DX: Z12.31 Encounter for screening mammogram for malignant neoplasm of breast (principal); Z78.0 Asymptomatic menopausal state
CPT/HCPCS: 77067

== ENCOUNTER → 2024-10-28 | Outpatient (CLI) | payer MEDICARE ==
[2024-10-28 11:17] LABS: African American GFR (CKD) >90 (>60 ml/min/1.73 sqM); Blood Urea Nitrogen 20 mg/dL (7-17); Non-African American GFR(CKD) 86 (>60 ml/min/1.73 sqM)
--- NOTE | 2024-10-28 16:01 | CT ---
EXAMINATION TYPE: CT angio neck DATE OF EXAM: 10/28/2024 COMPARISON: Prior CTA neck August 07, 2023 and older study 2020 CLINICAL INDICATION: Female, 74 years old with history of I65.139 OCCLUSION AND STENOSIS; PHH, caroti d stenosis TECHNIQUE: CTA scan of the head and neck is performed with IV Contrast, patient injected with 75ml m L of Isovue 370, axial images are obtained, coronal and sagittal reformatted images are reviewed. 3D reconstructed images are created on an independent workstation and reviewed. CT DLP: 196.90 mGycm Automated exposure control for dose reduction was used. NASCET criteria was used in interpretation of this exam? FINDINGS: Right Carotid System: The common carotid artery and external carotid artery are patent. The carotid bifurcation demonstrate s no evidence of hemodynamically significant stenosis. Mild to moderate peripheral plaque near the ca rotid bulb is redemonstrated The remaining portions of the internal carotid artery demonstrate normal size without significant narrowing. Mild calcified plaque distally is redemonstrated. Left Carotid System: The common carotid artery and external carotid artery are patent. Stable significant stenosis at orig in of the left external carotid artery series 4 image 82. The carotid bifurcation demonstrates persis tent severe mixed plaque extending into the proximal internal carotid artery causing hemodynamically significant stenosis. There is diameter luminal narrowing up to 1.6 mm image 83 and reconstitution up to 6.0 mm superior to this fairly similar to prior. The remaining portions of the internal carotid a rtery demonstrate normal size without significant narrowing. Mild calcified plaque distally is redemo nstrated. Vertebral arteries are patent without evidence hemodynamically significant stenosis. Dominant right v ertebral artery is redemonstrated. There is a four-vessel aortic arch which is normal variant. The origins of the great vessels are hummel nt. No evidence of hemodynamically significant stenosis. Other: Scattered subcentimeter hypodense nodules throughout the thyroid gland are redemonstrated IMPRESSION: 1. Stable significant stenosis proximal left internal carotid artery measured near 70-75% on current study. Severe stenosis origin of left external carotid artery redemonstrated. [facility], , 10/28/2024 3:58 PM
== END | disposition home or self-care (01) ==
LOC: RADCTMAIN 09:51
PROVIDERS: ATTEND Internal Medicine Interventional Cardiology
DX: I65.1 Occlusion and stenosis of basilar artery (principal); I65.22 Occlusion and stenosis of left carotid artery
CPT/HCPCS: 82565; 84520; 70498; 36415; Q9967

== ENCOUNTER → 2025-01-25 | Outpatient (CLI) | payer MEDICARE ==
--- NOTE | 2025-01-25 10:45 | MM ---
Reason for Exam: Screening (asymptomatic). Last screening mammogram was performed 12 month(s) ago. Patient History: Menarche at age 11. First Full-Term at age 22. Left ovary removed at age 39. Right ovary removed at age 39. Hysterectomy at age 39. Postmenopausal. Estrogen for 1 year from age 39 until age 40. Risk Values: Meliza 5 year model risk: 1.6%. NCI Lifetime model risk: 3.4%. Prior Study Comparison: 06/24/2020 Bilateral Screening Mammogram, [facility]. 12/27/2021 Bilateral Screening Mammogram, [facility]. 01/23/2024 Bilateral MG screening mammo w CAD, [facility]. Tissue Density: The breasts are heterogeneously dense, which may obscure small masses. Findings: Analyzed By CAD. Unchanged bilateral areas of asymmetric density. Benign bilateral vascular calcifications. There is no suspicious group of microcalcifications or new suspicious mass in either breast. Overall Assessment: Benign, BI-RAD 2 Management: Screening Mammogram of both breasts in 1 year. Patient should continue monthly self-breast exams. A clinical breast exam by your physician is recommended on an annual basis. This exam should not preclude additional follow-up of suspicious palpable abnormalities. Note on Meliza scores and lifetime risk: 1. A Meliza score greater than 3% is considered moderate risk. If this is the case, consider specialist referral to assess eligibility for a risk reducing agent. 2. If overall lifetime risk for the development of breast cancer is 20% or higher, the patient may qualify for future screening with alternating mammogram and breast MRI. [facility], , 01/25/2025 10:42 AM. Electronically signed and approved by: Chandler Fowler M.D. Radiologist
== END | disposition home or self-care (01) ==
LOC: RADMAMWWP 08:47
PROVIDERS: ATTEND Family Medicine
DX: Z12.31 Encounter for screening mammogram for malignant neoplasm of breast (principal); R92.333 Mammographic heterogeneous density, bilateral breasts; R92.1 Mammographic calcification found on diagnostic imaging of breast; Z78.0 Asymptomatic menopausal state
CPT/HCPCS: 77063; 77067